=== PATIENT | male | born 2000 | race African-American/Black ===

== ENCOUNTER 2025-02-24 14:12 | Emergency (ER) | payer MEDICAID ==
[~2025-02-24] VITALS: Ht 165.1 cm; Wt 90.7 kg
[2025-02-24 15:17] LABS: PLATELET COUNT (AUTO) 258 K/uL (150-450); RED BLOOD CELL COUNT(AUTO) 5.07 MIL/uL (4.5-6.0); RED CELL DISTRIBUTION WIDTH 14.4 % (11.5-15.0); WHITE BLOOD COUNT (AUTO) 6.7 K/uL (4.3-11.0)
[2025-02-24 15:28] LABS: CALCIUM, SERUM 8.4 mg/dL (8.5-10.1); CREATININE 0.9 mg/dL (0.6-1.3); SODIUM SERUM 140.0 mmol/L (136-145); UREA NITROGEN, BLOOD 15.0 mg/dL (7-18)
[2025-02-24 15:35] LABS: ASPARTATE AMINOTRANSFERASE 19.0 U/L (15-37); TOTAL PROTEIN, SERUM 7.5 g/dL (6.4-8.2)
[2025-02-24 15:47] LABS: APPEARANCE,URINE CLEAR (CLEAR); BLOOD, URINE NEGATIVE Ery/uL (NEGATIVE); LEUKOCYTE ESTERASE ,URINE NEGATIVE (NEGATIVE); NITRITE, URINE NEGATIVE (NEGATIVE); UGLUCOSE NEGATIVE (NEGATIVE)
[2025-02-24] MEDS ORDERED: KETOROLAC TROMETHAMINE 15 MG/ML VIAL ONE (16:12)
[2025-02-24] MEDS ORDERED: LIDOCAINE 1% INJ 50 ML MDV IJ ONE (16:13)
[2025-02-24] MEDS ORDERED: DOXYCYCLINE HYCLATE (100 MG) 100 MG TABLET ONE (16:13)
[2025-02-24] MEDS ORDERED: CEFTRIAXONE 1 G VIAL ONE (16:13)
[2025-02-24] MEDS ORDERED: DOXY100T2 PO (16:17)
[2025-02-24] MEDS ORDERED: IBUP-1490 PO (16:17)
[2025-02-24] MEDS: CEFTRIAXONE 1 G VIAL IM ONE (16:26)
[2025-02-24] MEDS: KETOROLAC TROMETHAMINE 15 MG/ML VIAL IM ONE (16:27)
[2025-02-24] MEDS: DOXYCYCLINE HYCLATE (100 MG) 100 MG TABLET PO ONE (16:27)
[2025-02-24 16:35] VITALS: BP 121/73; TEMP 98.6; O2SAT 100
[2025-02-27 13:08] LABS: CHLAMYDIA TRACHOMATIS NAA Negative (Negative); NEISSERIA GONORRHOEAE NAA Negative (Negative)
== END 2025-02-24 16:36 | disposition home or self-care (01) ==
LOC: ER 14:24
DX: R30.0 Dysuria (principal); R10.31 Right lower quadrant pain
CPT/HCPCS: 99285; 74176; 96372; 85025; 80048; 83690; 80076; 81003; 36415; 87491; 87591; J1885; J3490; J0696